=== PATIENT | female | born 1965 ===

== ENCOUNTER → 2018-07-18 21:06 | Outpatient (REF) | payer OTHER, SELFPAY ==
[2018-07-20 13:45] LABS: Sex Hormone Binding Globulin 50 nmol/L (17-124)
[2018-07-21 10:17] LABS: Sex Hormone Binding Globulin 44 nmol/L (17-124); Testosterone, Bioavailable 21.9 ng/dL (0.5-8.5); Testosterone, Total 123 ng/dL (2-45); Testosterone,Free 11.9 pg/mL (0.2-5.0)
[2018-07-22 17:00] LABS: Progesterone 2.6 ng/mL
[2018-07-25 21:52] LABS: Estrogen 948.1 pg/mL
== END ==
LOC: LAB 21:06
PROVIDERS: Visit Provider Naturopath
DX: R68.82 Decreased libido (principal)
CPT/HCPCS: 82040; 82672; 84144; 84270; 84403

== ENCOUNTER → 2018-11-23 21:03 | Outpatient (REF) | payer OTHER, SELFPAY ==
[2018-11-23 21:59] LABS: TSH w/ Reflex to FT4 0.98 uIU/mL (0.47-4.68)
[2018-11-26 17:49] LABS: Progesterone 4.1 ng/mL
== END ==
LOC: LAB 21:03
PROVIDERS: Visit Provider Naturopath
DX: R68.82 Decreased libido (principal); E06.3 Autoimmune thyroiditis; R63.5 Abnormal weight gain; Z79.890 Hormone replacement therapy
CPT/HCPCS: 36415; 82672; 84144; 84270; 84402; 84403; 84443